=== PATIENT | male | born 1960 | race African-American/Black ===

== ENCOUNTER 2017-03-24 19:25 | Emergency (ER) | payer MEDICAID ==
[~2017-03-24] VITALS: Ht 182.9 cm; Wt 78.0 kg
[2017-03-24] MEDS ORDERED: BACITRACIN ZINC OINT UDPKT TOP ONE (21:30)
[2017-03-24] MEDS ORDERED: TETANUS, DIPHTHERIA, PERTUSSIS VAC/PF 0.5ML (>7YR OLD) IM ONE (21:45)
[2017-03-24 22:17] VITALS: BP 160/90
== END 2017-03-24 22:18 | disposition home or self-care (01) ==
LOC: ER 21:54
DX: S01.01XA Laceration without foreign body of scalp, initial encounter (principal); F17.200 Nicotine dependence, unspecified, uncomplicated; I10 Essential (primary) hypertension; W18.30XA Fall on same level, unspecified, initial encounter; Y93.89 Activity, other specified; Y92.89 Other specified places as the place of occurrence of the external cause; Y99.8 Other external cause status
CPT/HCPCS: 12001; 90471; 90715; 99283; X7700; Z7610; 12031; 99284

== ENCOUNTER 2017-06-13 22:43 | Emergency (ER) | payer MEDICAID | END 2017-06-13 23:05 | disposition left against medical advice (07) | LOC: ER 22:43 | DX: R07.9 Chest pain, unspecified (principal); Z53.21 Procedure and treatment not carried out due to patient leaving prior to being seen by health care provider ==

== ENCOUNTER 2019-04-04 07:43 | Emergency (ER) | payer MEDICAID ==
[~2019-04-04] VITALS: Ht 180.3 cm; Wt 85.0 kg
[2019-04-04] MEDS ORDERED: SODIUM CHLORIDE 0.9% 1,000 ML IV ONE (11:39)
[2019-04-04 12:26] LABS: CLARITY URINE CLEAR (CLEAR); COLOR URINE YELLOW (YELLOW); KETONES URINE NEGATIVE (NEGATIVE); LEUKOCYTE ESTERASE URINE NEGATIVE (NEGATIVE); NITRITE URINE NEGATIVE (NEGATIVE); OCCULT BLOOD URINE NEGATIVE (NEGATIVE); PH URINE 5.5 (4.5-8.0); PROTEIN URINE NEGATIVE (NEGATIVE); SPECIFIC GRAVITY URINE 1.019 (1.005-1.030); UROBILINOGEN URINE 0.2 E.U./dL (0.2-1.0)
[2019-04-04 12:30] LABS: HEMATOCRIT. 42.5 % (42.0-52.0); HEMOGLOBIN. 14.5 g/dL (14.0-18.0); LYMPHOCYTES % 51.4 % (20.0-50.0); MEAN CORPUSCULAR HEMOGLOBIN 32.3 pg (28.0-32.0); MEAN CORPUSCULAR VOLUME 94.6 fL (80.0-94.0); MEAN PLATELET VOLUME 7.1 fl (7.4-10.4); MONOCYTES % 11.3 % (2.0-8.0); NEUTROPHILS % 30.3 % (40.0-76.0); PLATELET 187 x1000/uL (130-400)
[2019-04-04 12:33] LABS: CHLORIDE 105 mEq/L (98-107)
[2019-04-04 14:55] VITALS: BP 158/99
== END 2019-04-04 15:13 | disposition home or self-care (01) ==
LOC: ER 07:43
DX: K62.5 Hemorrhage of anus and rectum (principal); I10 Essential (primary) hypertension
CPT/HCPCS: 36415; 80053; 81003; 82270; 85025; 85610; 99283; J7030

== ENCOUNTER 2020-11-26 22:28 | Inpatient (IN) | payer MEDICAID, OTHER ==
[~2020-11-26] VITALS: Ht 180.3 cm; Wt 77.1 kg
[2020-11-27 07:27] LABS: HEMATOCRIT. 37.2 % (42.0-52.0); HEMOGLOBIN. 12.7 g/dL (14.0-18.0); MEAN CORPUSCULAR HEMOGLOBIN 29.5 pg (28.0-32.0); MEAN CORPUSCULAR VOLUME 86.6 fL (80.0-94.0); MEAN PLATELET VOLUME 6.1 fl (7.4-10.4); PLATELET 242 x1000/uL (130-400); RED BLOOD CELL COUNT 4.29 mill/uL (4.7-6.1)
[2020-11-27 07:32] LABS: CHLORIDE 104 mEq/L (98-107)
[2020-11-27 08:57] LABS: PLATELET ESTIMATE NORMAL
[2020-11-27 09:14] LABS: BG BASE EXCESS -0.6 mmol/L (-2.0-2.0); BG DEOXYHEMOGLOBIN 3.6 % (0.0-5.0); BG HCO3 ACT 24.2 mmol/L (22.0-26.0); BG METHEMOGLOBIN 0.2 % (0.0-1.5); BG OXYGEN SATURATION 96.4 % (92.0-98.5); BG OXYHEMOGLOBIN 95.2 % (94.0-97.0); BG PCO2 40.6 mmHg (35.0-45.0); BG PH 7.394 (7.350-7.450); BG PO2 88.2 mmHg (75.0-100.0); BG SAMPLE SITE RIGHT BRACHIAL; BG TOTAL HEMOGLOBIN 14.1 g/dL (12.0-18.0); BG VENT MODE ROOM AIR
[2020-11-27] MEDS ORDERED: CEFTRIAXONE 1 G PREMIX 50 ML IV SCH (10:00)
[2020-11-27] MEDS ORDERED: DIPHENHYDRAMINE 50MG/ML VIAL IV PRN (10:00)
[2020-11-27] MEDS ORDERED: CLONIDINE 0.1MG TABLET PO PRN (10:00)
[2020-11-27] MEDS ORDERED: ONDANSETRON HCL 4MG/2ML INJ IV PRN (10:00)
[2020-11-27 10:07] LABS: D-DIMER 2.9 mg/L FEU (<0.50)
[2020-11-27] MEDS: ENOXAPARIN 40MG/0.4ML SYR SUBCUT SCH (10:47)
[2020-11-27] MEDS: SODIUM CHLORIDE 0.9% 1,000 ML IV SCH ×2 (10:48→18:21)
[2020-11-27 13:29] LABS: CREATINE KINASE 142 IU/L (39-308)
[2020-11-27] MEDS ORDERED: ACETAMINOPHEN 325MG TABLET PO ONE (17:00)
[2020-11-27] MEDS ORDERED: AZITHROMYCIN 500 MG in DEXT 5% WATER 250 ML IV SCH (18:00)
[2020-11-27 20:42] VITALS: BP 132/75
[2020-11-27] MEDS ORDERED: LOSA25TA26 PO (22:05)
[2020-11-27] MEDS ORDERED: DOLU1TAB PO (22:05)
[2020-11-27] MEDS ORDERED: ELVI1TAB3 PO (22:05)
[2020-11-27] MEDS ORDERED: OXYC-582 PO (22:05)
[2020-11-27] MEDS ORDERED: NAPR-681 PO (22:05)
[2020-11-27] MEDS ORDERED: TAMS-11 (22:05)
[2020-11-27] MEDS ORDERED: AMLO10TA80 PO (22:05)
[2020-11-27] MEDS ORDERED: CYCL10TA7 PO (22:05)
[2020-11-28] VITALS (7 sets, daily range): BP systolic 117–136; BP diastolic 64–87
[2020-11-28] MEDS: SODIUM CHLORIDE 0.9% 1,000 ML IV SCH ×3 (01:39→17:49)
[2020-11-28] MEDS: ENOXAPARIN 40MG/0.4ML SYR SUBCUT SCH (08:41)
[2020-11-28] MEDS: CEFTRIAXONE 1,000 MG in DEXTROSE 5% WATER 50 ML IV SCH (08:42)
[2020-11-28 11:00] LABS: CLARITY URINE CLEAR (CLEAR); COLOR URINE YELLOW (YELLOW); KETONES URINE NEGATIVE (NEGATIVE); LEUKOCYTE ESTERASE URINE NEGATIVE (NEGATIVE); NITRITE URINE NEGATIVE (NEGATIVE); OCCULT BLOOD URINE NEGATIVE (NEGATIVE); PROTEIN URINE 1+ (NEGATIVE); SPECIFIC GRAVITY URINE 1.019 (1.005-1.030)
[2020-11-28] MEDS: AZITHROMYCIN 500 MG in DEXT 5% WATER 250 ML IV SCH (11:37)
[2020-11-28 12:47] LABS: BASOPHILS % 0.2 % (0.0-2.0); HEMATOCRIT. 36.7 % (42.0-52.0); LYMPHOCYTES % 14.1 % (20.0-50.0); MEAN CORPUSCULAR HEMOGLOBIN 29.3 pg (28.0-32.0); MEAN CORPUSCULAR VOLUME 89.6 fL (80.0-94.0); MEAN PLATELET VOLUME 6.6 fl (7.4-10.4); MONOCYTES % 9.8 % (2.0-8.0); NEUTROPHILS % 75.9 % (40.0-76.0); PLATELET 196 x1000/uL (130-400); RED CELL DISTRIBUTION WIDTH 14.2 % (11.6-14.6)
[2020-11-28 13:18] LABS: CHLORIDE 106 mEq/L (98-107)
[2020-11-28 13:52] LABS: HDL CHOLESTEROL 25 mg/dL (40-59)
[2020-11-28 13:55] LABS: LDL CHOLESTEROL 77 mg/dL (5-100)
[2020-11-28] MEDS ORDERED: PENICILLIN G BENZATHINE 2,400,000 UNITS/4ML SYR IM NR (20:00)
[2020-11-29] MEDS: SODIUM CHLORIDE 0.9% 1,000 ML IV SCH ×3 (01:58→18:17)
[2020-11-29] MEDS: ACETAMINOPHEN 325MG TABLET PO PRN ×2 (05:00→23:29)
[2020-11-29 07:09] LABS: HEMATOCRIT. 36.5 % (42.0-52.0); HEMOGLOBIN. 12.1 g/dL (14.0-18.0); MEAN CORPUSCULAR HEMOGLOBIN 29.4 pg (28.0-32.0); MEAN CORPUSCULAR VOLUME 88.8 fL (80.0-94.0); MEAN PLATELET VOLUME 6.5 fl (7.4-10.4); PLATELET 226 x1000/uL (130-400); RED BLOOD CELL COUNT 4.11 mill/uL (4.7-6.1); RED CELL DISTRIBUTION WIDTH 14.3 % (11.6-14.6)
[2020-11-29 07:30] LABS: CHLORIDE 105 mEq/L (98-107)
[2020-11-29 08:00] VITALS: BP 140/80
[2020-11-29] MEDS: CEFTRIAXONE 1,000 MG in DEXTROSE 5% WATER 50 ML IV SCH (09:43)
[2020-11-29] MEDS: ENOXAPARIN 40MG/0.4ML SYR SUBCUT SCH (09:44)
[2020-11-29 11:00] VITALS: BP 128/68
[2020-11-29] MEDS: AZITHROMYCIN 500 MG in DEXT 5% WATER 250 ML IV SCH (12:10)
[2020-11-29 14:00] VITALS: BP 124/66
[2020-11-29 20:17] LABS: PLATELET ESTIMATE NORMAL
[2020-11-30] VITALS: BP 138/106
[2020-11-30 04:30] VITALS: BP 152/90
[2020-11-30] MEDS: ACETAMINOPHEN 325MG TABLET PO PRN (04:35)
[2020-11-30 06:12] LABS: HEMATOCRIT. 36.2 % (42.0-52.0); MEAN CORPUSCULAR HEMOGLOBIN 29.2 pg (28.0-32.0); MEAN CORPUSCULAR VOLUME 88.4 fL (80.0-94.0); MEAN PLATELET VOLUME 6.7 fl (7.4-10.4); PLATELET 204 x1000/uL (130-400); RED CELL DISTRIBUTION WIDTH 13.9 % (11.6-14.6)
[2020-11-30 06:23] LABS: CHLORIDE 106 mEq/L (98-107)
[2020-11-30 08:00] VITALS: BP 136/77
[2020-11-30] MEDS: ENOXAPARIN 40MG/0.4ML SYR SUBCUT SCH (09:00)
[2020-11-30] MEDS: CEFTRIAXONE 1,000 MG in DEXTROSE 5% WATER 50 ML IV SCH (09:00)
[2020-11-30] MEDS: SODIUM CHLORIDE 0.9% 1,000 ML IV SCH (10:06)
[2020-11-30] MEDS ORDERED: AZITHROMYCIN 500 MG TABLET PO SCH (11:00)
[2020-11-30 20:54] LABS: PLATELET ESTIMATE NORMAL
[2020-12-01 09:06] LABS: ABSOLUTE LYMPHOCYTES 1.2 x10E3/uL (0.7-3.1); ABSOLUTE MONOCYTES 0.5 x10E3/uL (0.1-0.9); ABSOLUTE NEUTROPHILS 3.6 x10E3/uL (1.4-7.0); BASOPHILS 0 % (Not Estab.); HEMATOLOGY COMMENT Note: (.); HEMOGLOBIN 12.4 g/dL (13.0-17.7); IMMATURE GRANULOCYTES 0 % (Not Estab.); LYMPHOCYTES 22 % (Not Estab.); MEAN CORPUSCULAR HEMOGLOBIN 30.1 pg (26.6-33.0); MEAN CORPUSCULAR HGB CONC. 33.5 g/dL (31.5-35.7); MEAN CORPUSCULAR VOLUME 90 fL (79-97); MONOCYTES 9 % (Not Estab.); NEUTROPHILS 69 % (Not Estab.); PLATELETS 187 x10E3/uL (150-450); RBC 4.12 x10E6/uL (4.14-5.80); RED CELL DISTRIBUTION WIDTH 13.1 % (11.6-15.4); WBC 5.3 x10E3/uL (3.4-10.8)
[2020-12-01 13:07] LABS: % CD 3 POS. LYMPHOCYTES 74.1 % (57.5-86.2); % CD 4 POS. LYMPHOCYTES 5.4 % (30.8-58.5); % CD 8 POS. LYMPH 69.4 % (12.0-35.5); ABSOLUTE CD 3 889 /uL (622-2402); ABSOLUTE CD 4 HELPER 65 /uL (359-1519); ABSOLUTE CD 8 SUPPRESSOR 833 /uL (109-897); CD4/CD8 RATIO 0.08 (0.92-3.72)
== END 2020-11-30 09:35 | disposition left against medical advice (07) | DRG 892 ==
LOC: ER 22:28 → MICUSO 11-27 09:21 → 7WST 11-27 19:57 → 8WST 11-28 05:34
PROVIDERS: ADMIT Internal Medicine; ATTEND Internal Medicine
DX: A41.9 Sepsis, unspecified organism (principal); B20 Human immunodeficiency virus [HIV] disease; N17.0 Acute kidney failure with tubular necrosis; E43 Unspecified severe protein-calorie malnutrition; C46.9 Kaposi's sarcoma, unspecified; D64.9 Anemia, unspecified; N18.9 Chronic kidney disease, unspecified; I12.9 Hypertensive chronic kidney disease with stage 1 through stage 4 chronic kidney disease, or unspecified chronic kidney disease; Z20.822 Contact with and (suspected) exposure to COVID-19; Z53.21 Procedure and treatment not carried out due to patient leaving prior to being seen by health care provider; Z79.899 Other long term (current) drug therapy
CPT/HCPCS: 36415; 36600; 71045; 76770; 80048; 80053; 80061; 81003; 82375; 82550; 82728; 82805; 83615; 83880; 84145; 84443; 84484; 85025; 85379; 85384; 86140; 86359; 86360; 86592; 86593; 86780; 87491; 87591; 93005; 93970; 99291; C1893; J0456; J0561; J0696; J1650; J7060; U0003; U0005

== ENCOUNTER 2022-03-30 10:18 | Inpatient (IN) | payer MEDICAID, OTHER ==
[~2022-03-30] VITALS: Ht 188 cm; Wt 68.0 kg
[~2022-03-30 10:18] MED LIST: AMLO10TA80 PO; CYCL10TA21 PO; DOLU1TAB PO; ELVI1TAB3 PO; LOSA25TA26 PO; NAPR-681 PO; OXYC-582 PO; TAMS-11
[2022-03-30 12:31] LABS: HEMATOCRIT. 39.8 % (42.0-52.0); HEMOGLOBIN. 13.6 g/dL (14.0-18.0); MEAN CORPUSCULAR HEMOGLOBIN 30.9 pg (28.0-32.0); MEAN CORPUSCULAR VOLUME 90.3 fL (80.0-94.0); MEAN PLATELET VOLUME 7.1 fl (7.4-10.4); PLATELET 559 x1000/uL (130-400); RED BLOOD CELL COUNT 4.41 mill/uL (4.7-6.1); RED CELL DISTRIBUTION WIDTH 14.4 % (11.6-14.6)
[2022-03-30 13:45] LABS: PLATELET ESTIMATE INCREASED
[2022-03-30 14:44] LABS: CLARITY URINE CLEAR (CLEAR); COLOR URINE YELLOW (YELLOW); KETONES URINE NEGATIVE (NEGATIVE); LEUKOCYTE ESTERASE URINE NEGATIVE (NEGATIVE); NITRITE URINE NEGATIVE (NEGATIVE); OCCULT BLOOD URINE NEGATIVE (NEGATIVE); PH URINE 5.5 (4.5-8.0); PROTEIN URINE 1+ (NEGATIVE); SPECIFIC GRAVITY URINE 1.018 (1.005-1.030)
[2022-03-30 15:05] LABS: *AMPHETAMINES SCREEN URINE NEGATIVE (NEGATIVE); *BARBITURATES SCREEN URINE NEGATIVE (NEGATIVE); *BENZODIAZEPINES SCREEN URINE NEGATIVE (NEGATIVE); *COCAINE SCREEN URINE PRESUMTIVE POSITIVE (NEGATIVE); CANNABINOID URINE SCREEN NEGATIVE (NEGATIVE); METHADONE URINE SCREEN NEGATIVE (NEGATIVE); OPIATES URINE SCREEN NEGATIVE (NEGATIVE); PHENCYCLIDINE URINE SCREEN PRESUMTIVE POSITIVE (NEGATIVE)
[2022-03-30 17:40] LABS: CHLORIDE 101 mEq/L (98-107)
[2022-03-30 17:51] LABS: ETHANOL BLOOD < 10 mg/dL
[2022-03-30] MEDS ORDERED: ONDANSETRON HCL 4MG/2ML INJ IV STA (18:07)
[2022-03-30] MEDS ORDERED: MORPHINE SULFATE 4 MG/ML CPJ (NOT FOR IM USE) IV STA (18:07)
[2022-03-30] MEDS ORDERED: SODIUM CHLORIDE 0.9% 1,000 ML IV ONE (18:15)
[2022-03-30 19:19] LABS: CREATINE KINASE 78 IU/L (39-308)
[2022-03-30] MEDS ORDERED: MORPHINE SULFATE 4 MG/ML CPJ (NOT FOR IM USE) IV NR (20:00)
[2022-03-30] MEDS ORDERED: ONDANSETRON HCL 4MG/2ML INJ IV NR (20:00)
[2022-03-31 02:15] VITALS: BP 110/75
[2022-03-31 04:00] VITALS: BP 108/64
[2022-03-31] MEDS ORDERED: DIPHENHYDRAMINE 50MG/ML VIAL IV PRN (08:30)
[2022-03-31] MEDS ORDERED: MORPHINE SULFATE 2 MG/ML CPJ (NOT FOR IM USE) IV PRN (08:30)
[2022-03-31] MEDS ORDERED: CLONIDINE 0.1MG TABLET PO PRN (08:30)
[2022-03-31] MEDS ORDERED: ACETAMINOPHEN 325MG TABLET PO PRN (08:30)
[2022-03-31] MEDS ORDERED: IPRATROPIUM/ALBUTEROL 0.5-3(2.5)MG/3ML NEB HHN PRN (08:30)
[2022-03-31] MEDS ORDERED: ONDANSETRON HCL 4MG/2ML INJ IV PRN (08:30)
[2022-03-31] MEDS ORDERED: NALOXONE HCL 0.4MG/ML VIAL IV PRN (08:45)
[2022-03-31] MEDS: SODIUM CHLORIDE 0.9% 1,000 ML IV SCH ×2 (15:53→21:47)
[2022-03-31] MEDS: OXYCODONE HCL 10MG TABLET SR 12HR PO SCH ×2 (15:57→21:25)
[2022-03-31 20:00] VITALS: BP 119/70
[2022-04-01] VITALS: BP 125/70
[2022-04-01 04:00] VITALS: BP 107/60
[2022-04-01] MEDS: OXYCODONE HCL 10MG TABLET SR 12HR PO SCH ×3 (06:46→21:29)
[2022-04-01 08:10] VITALS: BP 112/58
[2022-04-01 09:25] LABS: HEMATOCRIT. 34.2 % (42.0-52.0); HEMOGLOBIN. 11.6 g/dL (14.0-18.0); MEAN CORPUSCULAR HEMOGLOBIN 30.8 pg (28.0-32.0); MEAN CORPUSCULAR VOLUME 90.5 fL (80.0-94.0); MEAN PLATELET VOLUME 6.4 fl (7.4-10.4); PLATELET 391 x1000/uL (130-400); RED BLOOD CELL COUNT 3.78 mill/uL (4.7-6.1); RED CELL DISTRIBUTION WIDTH 13.4 % (11.6-14.6)
[2022-04-01 09:50] LABS: CHLORIDE 97 mEq/L (98-107)
[2022-04-01] MEDS ORDERED: DEXTROSE 50% WATER 50ML SYRINGE IV PRN (12:00)
[2022-04-01] MEDS: BLOOD SUGAR DIAGNOSTIC STRIP TEST SCH ×3 (12:20→21:00)
[2022-04-01] MEDS: INSULIN LISPRO 100 UNITS/ML SUBCUT SCH ×3 (12:50→21:00)
[2022-04-01 12:52] VITALS: BP 101/57
[2022-04-01] MEDS: SODIUM CHLORIDE 0.9% 1,000 ML IV SCH (14:15)
[2022-04-01 16:08] VITALS: BP 111/70
[2022-04-01 17:32] LABS: PLATELET ESTIMATE NORMAL
[2022-04-01 20:00] VITALS: BP 130/88
[2022-04-02] MEDS: SODIUM CHLORIDE 0.9% 1,000 ML IV SCH ×2 (01:07→14:20)
[2022-04-02] MEDS: OXYCODONE HCL 10MG TABLET SR 12HR PO SCH ×3 (05:11→21:10)
[2022-04-02] MEDS: BLOOD SUGAR DIAGNOSTIC STRIP TEST SCH ×4 (07:39→21:11)
[2022-04-02] MEDS: INSULIN LISPRO 100 UNITS/ML SUBCUT SCH ×4 (07:50→21:00)
[2022-04-02 08:00] VITALS: BP 111/72
[2022-04-02 11:56] LABS: HEMATOCRIT. 34.5 % (42.0-52.0); HEMOGLOBIN. 11.5 g/dL (14.0-18.0); MEAN CORPUSCULAR HEMOGLOBIN 30.6 pg (28.0-32.0); MEAN CORPUSCULAR VOLUME 91.7 fL (80.0-94.0); MEAN PLATELET VOLUME 6.3 fl (7.4-10.4); PLATELET 353 x1000/uL (130-400); RED BLOOD CELL COUNT 3.76 mill/uL (4.7-6.1); RED CELL DISTRIBUTION WIDTH 13.6 % (11.6-14.6)
[2022-04-02 12:00] VITALS: BP 123/83
[2022-04-02 13:15] LABS: PHOSPHORUS 3.8 mg/dL (2.5-4.9)
[2022-04-02 16:00] VITALS: BP 115/67
[2022-04-02 20:00] VITALS: BP 127/78
[2022-04-02 22:36] LABS: PLATELET ESTIMATE NORMAL
[2022-04-03] VITALS: BP 122/69
[2022-04-03 04:00] VITALS: BP 122/74
[2022-04-03] MEDS: SODIUM CHLORIDE 0.9% 1,000 ML IV SCH ×2 (04:20→17:23)
[2022-04-03] MEDS: OXYCODONE HCL 10MG TABLET SR 12HR PO SCH ×3 (06:10→23:14)
[2022-04-03 07:18] LABS: BASOPHILS % 0.1 % (0.0-2.0); HEMATOCRIT. 33.7 % (42.0-52.0); HEMOGLOBIN. 11.2 g/dL (14.0-18.0); LYMPHOCYTES % 7.8 % (20.0-50.0); MEAN CORPUSCULAR HEMOGLOBIN 30.3 pg (28.0-32.0); MEAN CORPUSCULAR VOLUME 91.3 fL (80.0-94.0); MEAN PLATELET VOLUME 6.2 fl (7.4-10.4); MONOCYTES % 8.2 % (2.0-8.0); NEUTROPHILS % 83.9 % (40.0-76.0); PLATELET 324 x1000/uL (130-400); RED CELL DISTRIBUTION WIDTH 13.4 % (11.6-14.6)
[2022-04-03] MEDS: BLOOD SUGAR DIAGNOSTIC STRIP TEST SCH ×4 (07:20→20:52)
[2022-04-03] MEDS: INSULIN LISPRO 100 UNITS/ML SUBCUT SCH ×4 (07:50→20:54)
[2022-04-03 08:00] VITALS: BP 107/69
[2022-04-03 12:00] VITALS: BP 100/70
[2022-04-03 16:00] VITALS: BP 138/79
[2022-04-03 16:27] LABS: INR 1.1; PROTHROMBIN TIME 12.1 sec (9.6-11.0)
[2022-04-03] MEDS ORDERED: GADOTERATE MEGLUMINE 5 MMOL/10 ML VIAL IV ONE (18:01)
[2022-04-03 20:00] VITALS: BP 141/73
[2022-04-03] MEDS ORDERED: VANCOMYCIN 1500MG in DEXTROSE 5% WATER 250ML IV NR (23:30)
[2022-04-04] VITALS: BP 151/91
[2022-04-04 04:00] VITALS: BP 113/68
[2022-04-04] MEDS: OXYCODONE HCL 10MG TABLET SR 12HR PO SCH ×3 (05:52→22:45)
[2022-04-04] MEDS: SODIUM CHLORIDE 0.9% 1,000 ML IV SCH ×2 (05:53→19:40)
[2022-04-04 06:23] LABS: HEMATOCRIT. 34.8 % (42.0-52.0); HEMOGLOBIN. 11.5 g/dL (14.0-18.0); MEAN CORPUSCULAR HEMOGLOBIN 30.3 pg (28.0-32.0); MEAN CORPUSCULAR VOLUME 91.8 fL (80.0-94.0); PLATELET 315 x1000/uL (130-400); RED CELL DISTRIBUTION WIDTH 13.6 % (11.6-14.6)
[2022-04-04] MEDS: INSULIN LISPRO 100 UNITS/ML SUBCUT SCH ×4 (07:48→21:00)
[2022-04-04] MEDS: BLOOD SUGAR DIAGNOSTIC STRIP TEST SCH ×4 (07:48→21:07)
[2022-04-04 08:00] VITALS: BP 110/68
[2022-04-04] MEDS ORDERED: HYDROCODONE/ACETAMINOPHEN 10/325MG TABLET PO PRN (09:45)
[2022-04-04] MEDS ORDERED: VANCOMYCIN 500 MG IV SCH (11:00)
[2022-04-04 16:00] VITALS: BP 121/78
[2022-04-04] MEDS: VANCOMYCIN 1G PREMIX 200 ML IV SCH (18:02)
[2022-04-04 20:00] VITALS: BP 127/80
[2022-04-04] MEDS ORDERED: VANCOMYCIN 1G PREMIX 200 ML IV SCH (23:00)
[2022-04-05] VITALS: BP 113/76
[2022-04-05 04:00] VITALS: BP 103/73
[2022-04-05] MEDS: OXYCODONE HCL 10MG TABLET SR 12HR PO SCH ×2 (06:07→15:57)
[2022-04-05] MEDS: BLOOD SUGAR DIAGNOSTIC STRIP TEST SCH ×4 (06:22→20:02)
[2022-04-05 07:47] LABS: BASOPHILS % 0.4 % (0.0-2.0); EOSINOPHILS % 0.2 % (0.0-5.0); HEMATOCRIT. 34.2 % (42.0-52.0); HEMOGLOBIN. 11.4 g/dL (14.0-18.0); LYMPHOCYTES % 10.1 % (20.0-50.0); MEAN CORPUSCULAR HEMOGLOBIN 30.3 pg (28.0-32.0); MEAN CORPUSCULAR VOLUME 90.6 fL (80.0-94.0); MEAN PLATELET VOLUME 6.3 fl (7.4-10.4); MONOCYTES % 8.8 % (2.0-8.0); NEUTROPHILS % 80.5 % (40.0-76.0); PLATELET 289 x1000/uL (130-400); RED BLOOD CELL COUNT 3.77 mill/uL (4.7-6.1); RED CELL DISTRIBUTION WIDTH 13.6 % (11.6-14.6)
[2022-04-05] MEDS: INSULIN LISPRO 100 UNITS/ML SUBCUT SCH ×4 (07:50→20:02)
[2022-04-05] MEDS: VANCOMYCIN 1G PREMIX 200 ML IV SCH (11:00)
[2022-04-05 11:07] LABS: PLATELET ESTIMATE NORMAL
[2022-04-05 12:03] VITALS: BP 123/87
[2022-04-05] MEDS ORDERED: LIDOCAINE HCL 1% 10 MG/ML 10ML VIAL ONE (12:52)
[2022-04-05 20:00] VITALS: BP 150/75
[2022-04-06] VITALS: BP 121/74
[2022-04-06 04:00] VITALS: BP 118/58
[2022-04-06] MEDS: VANCOMYCIN 1G PREMIX 200 ML IV SCH (05:44)
[2022-04-06] MEDS: BLOOD SUGAR DIAGNOSTIC STRIP TEST SCH ×2 (05:44→12:20)
[2022-04-06 07:49] LABS: BASOPHILS % 0.5 % (0.0-2.0); HEMATOCRIT. 34.5 % (42.0-52.0); HEMOGLOBIN. 11.4 g/dL (14.0-18.0); LYMPHOCYTES % 11.6 % (20.0-50.0); MEAN CORPUSCULAR HEMOGLOBIN 29.8 pg (28.0-32.0); MEAN CORPUSCULAR VOLUME 90.5 fL (80.0-94.0); MEAN PLATELET VOLUME 6.8 fl (7.4-10.4); MONOCYTES % 10.6 % (2.0-8.0); NEUTROPHILS % 77.3 % (40.0-76.0); PLATELET 289 x1000/uL (130-400); RED BLOOD CELL COUNT 3.81 mill/uL (4.7-6.1); RED CELL DISTRIBUTION WIDTH 13.5 % (11.6-14.6)
[2022-04-06] MEDS: INSULIN LISPRO 100 UNITS/ML SUBCUT SCH ×2 (07:50→12:50)
[2022-04-06] MEDS ORDERED: DEXT 5%/LACTATED RINGERS 1,000 ML IV SCH (08:15)
[2022-04-06 08:53] LABS: CHLORIDE 102 mEq/L (98-107)
[2022-04-06 12:00] VITALS: BP 130/82
[2022-04-06 16:03] LABS: CHLORIDE 99 mEq/L (98-107)
[2022-04-06] MEDS ORDERED: VANCOMYCIN 1G PREMIX 200 ML IV SCH (18:00)
== END 2022-04-06 15:45 | disposition left against medical advice (07) | DRG 720 ==
LOC: ER 10:18 → MICUSO 21:43 → EDBEDREQTM 22:04 → EDBEDREQ 22:04 → 6EST 03-31 01:37
PROVIDERS: ADMIT Internal Medicine; ATTEND Internal Medicine
PROC: 02HV33Z Insertion of Infusion Device into Superior Vena Cava, Percutaneous Approach (ICD-10-PCS; principal; 2022-04-05)
PROC: B548ZZA Ultrasonography of Superior Vena Cava, Guidance (ICD-10-PCS; 2022-04-05)
PROC: B5181ZA Fluoroscopy of Superior Vena Cava using Low Osmolar Contrast, Guidance (ICD-10-PCS; 2022-04-05)
DX: A41.9 Sepsis, unspecified organism (principal); N17.0 Acute kidney failure with tubular necrosis; G06.2 Extradural and subdural abscess, unspecified; E43 Unspecified severe protein-calorie malnutrition; E87.1 Hypo-osmolality and hyponatremia; S06.4X0A Epidural hemorrhage without loss of consciousness, initial encounter; M47.819 Spondylosis without myelopathy or radiculopathy, site unspecified; Z20.822 Contact with and (suspected) exposure to COVID-19; G89.29 Other chronic pain; N18.9 Chronic kidney disease, unspecified; I12.9 Hypertensive chronic kidney disease with stage 1 through stage 4 chronic kidney disease, or unspecified chronic kidney disease; F16.10 Hallucinogen abuse, uncomplicated; F14.10 Cocaine abuse, uncomplicated; Z53.29 Procedure and treatment not carried out because of patient's decision for other reasons; Z79.899 Other long term (current) drug therapy; Z68.1 Body mass index [BMI] 19.9 or less, adult; M48.061 Spinal stenosis, lumbar region without neurogenic claudication; W18.30XA Fall on same level, unspecified, initial encounter; Y93.89 Activity, other specified; Y92.009 Unspecified place in unspecified non-institutional (private) residence as the place of occurrence of the external cause; Y99.8 Other external cause status
CPT/HCPCS: 36415; 36573; 72131; 72148; 76770; 80048; 80053; 80202; 80305; 80320; 81003; 82550; 82962; 83036; 83735; 84100; 84484; 85025; 85651; 86850; 86900; 87426; 93005; 93970; 94640; 97162; 97165; 99285; A9577; C1725; C1893; J2270; J2405; J3370; J3490; J7030; J7060; J7121; G0480